=== PATIENT | female | born 1960 | race Caucasian/White ===

== ENCOUNTER → 2020-04-21 14:46 | Outpatient (CLI) | payer OTHER, SELFPAY ==
--- NOTE | 2020-04-21 14:52 | RAD_ITS ---
STUDY: X-RAY CHEST REASON FOR EXAM: Female, 59 years old. Long-term arthritis to therapy. TECHNIQUE: Frontal and lateral views of the chest COMPARISON: None. FINDINGS: The lungs are clear. There are no pleural effusions. There is no pneumothorax. The heart is normal in size. The visualized osseous structures are within normal limits. RAD/Chest PA and Lateral IMPRESSION: Clear lungs. Electronically Signed: Floyd King, at 15:05 EDT Tel , Service support ,
[2020-04-25 11:08] LABS: QNTFERON TB Mitogen Value 2.88 IU/mL (.); QNTFERON TB Nil Value 0.03 IU/mL (.); QNTFERON TB1+ Ag Value 0.08 IU/mL (.); QNTFERON TB2+ Ag Value 0.04 IU/mL (.)
[2020-04-25 15:50] LABS: QNTIFERON TB Positive Criteria Negative (Negative)
== END ==
PROVIDERS: PCP Family Medicine; Referring Provider Internal Medicine Rheumatology; Visit Provider Internal Medicine Rheumatology
DX: L40.59 Other psoriatic arthropathy (principal); Z79.899 Other long term (current) drug therapy; L40.8 Other psoriasis; M75.02 Adhesive capsulitis of left shoulder; M17.31 Unilateral post-traumatic osteoarthritis, right knee; M47.892 Other spondylosis, cervical region; K76.0 Fatty (change of) liver, not elsewhere classified; G47.00 Insomnia, unspecified; M16.9 Osteoarthritis of hip, unspecified; E11.8 Type 2 diabetes mellitus with unspecified complications; I10 Essential (primary) hypertension; N20.0 Calculus of kidney
CPT/HCPCS: 36415; 71046; 86480